=== PATIENT | male | born 1985 | race Two or more races ===

== ENCOUNTER 2024-08-18 11:52 | Emergency (ER) | payer MEDICAID, SELFPAY ==
[2024-08-18 11:55] VITALS: BMI 27.3
[2024-08-18 12:05] VITALS: BP 159/104; PULSE 116; RESP 20; TEMP 37.6; O2SAT 95
--- NOTE | 2024-08-18 12:48 | PD.EDMEDCL ---
ED Medical Clearance RME/HPI General Chief complaint: Medical Clearance Stated complaint: INGESTION OF UNKNOWN SUBSTANCE, CLEARANCE Arrival date/time: 08/18/24 11:52 Patient is currently praying and does not want to engage in conversation with the provider [phone] With a inspectors and regulatory officers at the bedside the patient refuses to be seen by provider. States he is fine . It was noted that he is slightly tachycardic and has a low-grade fever, bringing up the possibility of a viral illness. He also had a small streak of dried blood from his left knee down to the leg without active bleeding which she refused to be seen for. Related Information Allergies Allergy/AdvReac Type Severity Reaction Status Date / Time No Known Allergies Allergy Verified 08/18/24 12:03 Review of Systems Review of Systems ROS Unobtainable: other Narrative Review of Systems: Patient does not cooperate ED Exam Narrative Physical exam: Physical examination is limited. Patient is awake and alert and in no apparent distress. His face is symmetrical. He ambulated to the emergency department with his bilateral upper extremities handcuffed Course Quality Measures none Vital Signs Vital signs: Vital Signs Temperature 99.6 F 08/18/24 12:05 Pulse Rate 116 H 08/18/24 12:05 Respiratory Rate 20 08/18/24 12:05 Blood Pressure 159/104 H 08/18/24 12:05 Pulse Oximetry (%) 95 08/18/24 12:05 Oxygen Delivery Method Room Air 08/18/24 12:05 Medical Clearance [facility] Narrative MDM Narrative:: Patient refuses medical care Patient data External records reviewed:: None Clinical information provided by:: law enforcement Social determinants that could affect healthcare access:: none Patient has the following chronic illnesses:: Unknown How is presenting disease/condition affected by chronic disease/condition?: no chronic disease Evaluation data The following diagnostics were reviewed and interpreted by me:: other (specify) (Patient refused) Lab and/or radiology exams considered but not ordered:: No labs. No imaging studies Interpretation Summary: Not applicable Medications / Prescriptions Medications or Prescriptions considered but not ordered:: Refused Medication administrations:: Refused Consultations Consultation(s) initiated? (list below): No Diagnosis Medical Clearance Differential Diagnosis: other Most likely diagnosis given after review of the tests above:: Medical screening exam Admission Indicated Admission indicated?: not indicated Admission Request Was there a request for admission?: No Disposition Plan Disposition Plan: Discharge Discharge Attestation Discharge Attestation: The patient and all family members were given an opportunity to ask questions and understood the discharge instructions. Discharge instructions specifically effects, indications for sooner follow up or return to the emergency department, and the expected course of current diagnosis. Patient condition: Stable Discharge Plan Plan Patient Disposition: Longterm/Court/Law Patient condition on transfer: Stable Prescriptions/Referrals Referrals: No Primary/Family,Physician [Primary Care Provider] - In 1 week Problem List Clinical Impression: Encounter for medical screening examination Patient/Caregiver Discharge Instructions Discharge Activity: activity as tolerated Education Materials: ED Medical Screening Exam, Nonemergent Print Language: [place]
[2024-08-18 13:39] VITALS: BP 115/93; PULSE 101
== END 2024-08-18 13:39 ==
PROVIDERS: Emergency Provider Emergency Medicine
DX: Z02.89 Encounter for other administrative examinations (principal)
CPT/HCPCS: 99281

== ENCOUNTER 2025-01-18 21:30 | Emergency (ER) | payer MEDICAID, SELFPAY ==
--- NOTE | 2025-01-18 22:39 | PC.NURSE ---
PT BROUGHT TO HOSPITAL BY [employer]. PT REFUSED TO COME INTO THE HOSPITAL. PT REFUSED ALL CARE PER [employer].
--- NOTE | 2025-01-18 22:40 | EDNOTE_ITS ---
ED Medical Clearance RME/HPI General Chief complaint: Medical Clearance Stated complaint: MEDICAL CLEARANCE Time Seen by Provider: 01/18/25 21:58 Arrival date/time: 01/18/25 21:30 RME / HPI RME / HPI Narrative: 39-year-old male patient came in for evaluation regarding medical clearance. Patient was brought in by law enforcement for medical clearance. On my initial evaluation patient is refusing to answer question, she does not want to be seen or examined. Related Information Allergies Allergy/AdvReac Type Severity Reaction Status Date / Time No Known Allergies Allergy Verified 08/18/24 12:03 Review of Systems Review of Systems ROS Unobtainable: other Narrative Review of Systems: Does not want to be seen examined ED Exam Narrative Physical exam: Does not want to be seen or examined Course Quality Measures none Medical Clearance MDM Narrative MDM Narrative:: 39-year-old male patient came in for evaluation regarding medical clearance. Patient was brought in by law enforcement for medical clearance. On my initial evaluation patient is refusing to answer question, she does not want to be seen or examined. Patient is refusing to be seen and examined Patient data External records reviewed:: None Clinical information provided by:: law enforcement Social determinants that could affect healthcare access:: none Patient has the following chronic illnesses:: None How is presenting disease/condition affected by chronic disease/condition?: no chronic disease Evaluation data The following diagnostics were reviewed and interpreted by me:: other (specify) Lab and/or radiology exams considered but not ordered:: None Interpretation Summary: None Medications / Prescriptions Medications or Prescriptions considered but not ordered:: None Medication administrations:: None Consultations Consultation(s) initiated? (list below): No Diagnosis Medical Clearance Differential Diagnosis: other (Medical clearance) Most likely diagnosis given after review of the tests above:: Medical clearance for incarceration, refused to be examined Admission Indicated Admission indicated?: not indicated Admission Request Was there a request for admission?: No Disposition Plan Disposition Plan: other (specify) (Pt has normal mental status and adequate capacity to make medical decisions. Oriented x 4. The patient refuses evaluation and treatment and wants to be discharged. The risks have been explained to the patient, including progression of possible worsening of current disease, worsening illness, chron) Discharge Plan Plan Patient Disposition: Left Against Medical Advice Disposition Comment: Stable Prescriptions/Referrals Referrals: No Primary/Family,Physician [Primary Care Provider] - In 1 week Problem List Clinical Impression: Medical clearance for incarceration Patient/Caregiver Discharge Instructions Discharge Activity: activity as tolerated Education Materials: Reducing Your Health Risks ... Print Language: Lithuanian Stand Alone Forms: Ariana Award Info., Patient Portal Info Letter PA/MD PEDIATRIC ALLERGIST Supervising Physician PA/MD PEDIATRIC ALLERGIST Supervising Physician: MD Jayashree
== END 2025-01-18 23:37 | disposition left against medical advice (07) ==
PROVIDERS: Emergency Provider Emergency Medicine
DX: Z02.89 Encounter for other administrative examinations (principal); Z53.29 Procedure and treatment not carried out because of patient's decision for other reasons